=== PATIENT | female | born 1995 | race Caucasian/White ===

== ENCOUNTER 2016-08-09 11:58 | Emergency (ER) | payer OTHER ==
[~2016-08-09] VITALS: Ht 177.8 cm; Wt 63.5 kg
--- NOTE | 2016-08-09 13:04 | ED NECK/BACK PAIN COMPLAINT ---
History of Present Illness General Chief Complaint: Low Back Pain/Injury Stated Complaint: CHRONIC LBP Source: patient, old records Exam Limitations: no limitations Vital Signs & Intake/Output Vital Signs & Intake/Output Vital Signs Date Time Temp Pulse Resp B/P B/P Pulse O2 O2 Flow FiO2 Mean Ox Delivery Rate 08/09 1203 98.7 85 18 114/80 Room Air Allergies Coded Allergies: No Known Allergies (08/09/16) Triage Note: 21 Y/O FEMALE C/O LOW BACK PAIN RADIATING DOWN R LEG X 1 WEEK. HX SCIATICA AND WAS ON LYRICA BUT STOPPED DUE TO MEDICATION NOT HELPING. DENIES DIFFICULTY URINATING Triage Nurses Notes Reviewed? yes : No Patient currently breastfeeds: No HPI: 21F PMH CHRONIC LOWER BACK PAIN FOR ALMOST A YEAR PRESENTING WITH EXACERBATION OF BACK PAIN. PAIN IS RIGHT SIDED, LUMBAR, RADIATING DOWN THE RIGHT LEG. NO SADDLE PARESTHESIA OR INCONTINENCE. STRENGTH AND SENSATION INTACT WITH ROM LIMITED BY PAIN. NO RECENT TRAUMA. Past History Travel History Traveled to [place] past 21 day No Medical History Any Pertinent Medical History? see below for history Neurological: NONE EENT: NONE Cardiovascular: NONE Respiratory: NONE Gastrointestinal: NONE Hepatic: NONE Renal: NONE Musculoskeletal: NONE Psychiatric: NONE Endocrine: NONE Blood Disorders: NONE Cancer(s): NONE LOW EMISSION [employer]/Reproductive: NONE Surgical History Surgical History: non-contributory Psychosocial History What is your primary language Luxembourgish Tobacco Use: Never used Family History Hx Contributory? No Review of Systems Review of Systems Constitutional: Reports: no symptoms. Eyes: Reports: no symptoms. Ears, Nose, Throat, Mouth: Reports: no symptoms. Respiratory: Reports: no symptoms. Cardiovascular: Reports: no symptoms. Gastrointestinal/Abdominal: Reports: no symptoms. Musculoskeletal: Reports: see HPI. Skin: Reports: no symptoms. Neurological/Psychological: Reports: no symptoms. All Other Systems: Reviewed and Negative Physical Exam Physical Exam General Appearance: well developed/nourished, mild distress Head: atraumatic Eyes: Bilateral: PERRL, EOMI. Ears, Nose, Throat, Mouth: hearing grossly normal Neck: normal inspection, supple, full range of motion Respiratory: normal breath sounds Cardiovascular: regular rate/rhythm Gastrointestinal: soft, non-tender Back: normal inspection, RIGHT PARAVERTEBRAL TENDERNESS, NO ERYTHEMA OR SWELLING. PT REFUSED STRAIGHT LEG TEST. Extremities: normal range of motion Neurologic/Psych: no motor/sensory deficits, awake, alert, oriented x 3, normal mood/affect Skin: intact, normal color, warm/dry Progress Differential Diagnosis: AAA, aortic dissection, C spine injury, carotid dissection, cauda equina syn, herniated disc, myofascial strain, pyelo/UTI, sciatica, spinal cord inj, thoracic outlet syn, T/L spine injury, ureterolithiasis Plan of Care: Current Medications Sig/Meek Start time Last Medication Dose Stop Time Status Admin Ketorolac 60 MG ONCE ONE 08/09 1300 AC Tromethamine 08/09 1301 (Toradol) Departure Departure Disposition: HOME OR SELF CARE Condition: Stable Clinical Impression Primary Impression: Sciatica Referrals: MAURISIO SWANSON,JB UNKNOWN (PCP/Family) Departure Forms: Customer Survey General Discharge Information
== END 2016-08-09 13:57 ==
LOC: ERH 11:58
DX: M54.41 Lumbago with sciatica, right side (principal)
CPT/HCPCS: 96372; J1885